=== PATIENT | female | born 1990 | race Caucasian/White ===

== ENCOUNTER 2017-01-08 23:37 | Emergency (ER) | payer OTHER ==
[2017-01-09 00:25] VITALS: BP 130/84; PULSE 87; BMI 24.7
--- NOTE | 2017-01-09 00:32 | PDOC ---
History of Present Illness - General History Source: Patient Exam Limitations: No Limitations - History of Present Illness Initial Comments: 01/09/17 00:44 The patient is a 26 year old male, with a significant past medical history of Asthma who presents to the emergency department with pain and swelling to L wrist today. Patient reports play fighting with her boyfriend and immediately experienced L wrist pain. Patient reports decreased range of motion and presents to the ED for further evaluation. <Swati Vasquez - Last Filed: 01/09/17 00:44> - General History Source: Patient <Andrei Welsh - Last Filed: 01/09/17 01:19> - General Chief Complaint: Injury Stated Complaint: INJURY Time Seen by Provider: 01/09/17 00:32 Past History <Swati Vasquez - Last Filed: 01/09/17 00:44> - Past Medical History Asthma: Yes - Surgical History Abdominal Surgery: Yes - Suicide/Smoking/Psychosocial Hx Smoking Status: No Smoking History: Never smoked Have you smoked in the past 12 months: No Number of Cigarettes Smoked Daily: 0 Information on smoking cessation initiated: No Hx Alcohol Use: No Drug/Substance Use Hx: No <HamiltonAndrei wick - Last Filed: 01/09/17 01:19> - Past Medical History Allergies/Adverse Reactions: Allergies Allergy/AdvReac Type Severity Reaction Status Date / Time sulfamethoxazole Allergy Mild Hives Verified 01/09/17 00:22 [From Bactrim] trimethoprim [From Bactrim] Allergy Mild Hives Verified 01/09/17 00:22 Home Medications: Ambulatory Orders NK [No Known Home Medication] 01/09/17 Review of Systems - Review of Systems Able to Perform ROS?: Yes Comments:: 01/09/17 00:44 CONSTITUTIONAL: Absent: fever, no chills, no fatigue EYES: Absent: visual changes ENT: Absent: ear pain, no sore throat CARDIOVASCULAR: Absent: chest pain, no palpitations RESPIRATORY: Absent: cough, no SOB GI: Absent: abdominal pain, no nausea, no vomiting, no constipation, no diarrhea GENITOURINARY: Absent: dysuria, no frequency, no hematuria MUSCULOSKELETAL: + L wrist pain. Absent: back pain, no arthralgia, no myalgia SKIN: Absent: rash <Swati Vasquez - Last Filed: 01/09/17 00:44> *Physical Exam - Vital Signs Last Vital Signs Temp Pulse Resp BP Pulse Ox 87 14 130/84 100 01/09/17 00:23 01/09/17 00:23 01/09/17 00:23 01/09/17 00:23 - Physical Exam Comments: 01/09/17 00:45 GENERAL: Well-appearing, well-nourished. No apparent distress. HEENT: Normocephalic, atraumatic. PERRL, EOM intact. CARDIOVASCULAR: Normal S1, S2. Regular rate and rhythm. PULMONARY: Clear to auscultation bilaterally. ABDOMEN: Soft, non-distended, non-tender. EXTREMITIES: +Swelling through L thenar. Decreased ROM due to swelling and pain to L wrist. Normal ROM in all three extremities. No gross deformities. SKIN: Warm, dry. No rash NEUROLOGICAL: No focal neurological deficits. <Swati Vasquez - Last Filed: 01/09/17 00:44> - Vital Signs Last Vital Signs Temp Pulse Resp BP Pulse Ox 87 14 130/84 100 01/09/17 00:23 01/09/17 00:23 01/09/17 00:23 01/09/17 00:23 <Andrei Welsh - Last Filed: 01/09/17 01:19> Medical Decision Making - Medical Decision Making 01/09/17 01:18 Dr. Welsh: The scribe's documentation has been prepared under my direction and personally reviewed by me in its entirery. I confirm that the note above accurately reflects all work, treatment, procedures, and medical decision making performed by me. <Andrei eWlsh - Last Filed: 01/09/17 01:19> *DC/Admit/Observation/Transfer - Attestations Scribe Attestion: 01/09/17 00:45 Documentation prepared by Swati Vasquez, acting as medical imaging technologist for Andrei Welsh DO. <Swati Vasquez - Last Filed: 01/09/17 00:44> - Discharge Dispostion Admit: No <Andrei Welsh - Last Filed: 01/09/17 01:19> Diagnosis at time of Disposition: Sprain of wrist - Discharge Dispostion Disposition: HOME Condition at time of disposition: Stable - Referrals Referrals: Ike Molina MD [Staff Physician] - - Patient Instructions Printed Discharge Instructions: DI for Wrist Sprain Additional Instructions: rest hand and wrist as much as possible. Apply ice for the next blood. Take Motrin for pain and swelling - Post Discharge Activity Forms/Work/School Notes: Back to Work
[2017-01-09] MEDS ORDERED: IBUPROFEN 600 MG TABLET (FP) PO STA (00:33)
[2017-01-09] MEDS ORDERED: IBUPROFEN 600 MG TABLET (FP) PO ONE ×2 (00:44→01:09)
== END 2017-01-09 01:31 | disposition home or self-care (01) ==
LOC: JER 23:37
DX: S63.502A Unspecified sprain of left wrist, initial encounter (principal); X58.XXXA Exposure to other specified factors, initial encounter; Y93.89 Activity, other specified; Y92.9 Unspecified place or not applicable; J45.909 Unspecified asthma, uncomplicated
CPT/HCPCS: 73110-TC-LT; 73130-TC-LT; 99282-25

== ENCOUNTER 2020-10-12 06:15 | Inpatient (IN) | payer OTHER ==
[2020-10-12 07:00] VITALS: BMI 33.6
[2020-10-12] MEDS ORDERED: morphine SULFATE/PF 0.5 MG/ML (2cc Syringe - QUVA) EP ONE (07:56)
[2020-10-12] MEDS ORDERED: ONDANSETRON 4 MG/2 ML VIAL IVPUSH PRN (07:56)
[2020-10-12] MEDS ORDERED: CITRIC ACID/SODIUM CITRATE 30 ML UNIT-DOSE CUP PO ONE (08:10)
[2020-10-12] MEDS ORDERED: ELECTROLYTE-148 SOLN 500 ML IV ONE (08:10)
[2020-10-12] MEDS ORDERED: ceFAZolin SODIUM 1 GM VIAL ONE (08:13)
[2020-10-12] MEDS ORDERED: OXYTOCIN 10 UNITS/ML VIAL ONE ×2 (08:26→09:02)
[2020-10-12] MEDS ORDERED: ePHEDrine SULFATE 50 MG/1 ML AMPULE ONE (08:28)
[2020-10-12] MEDS ORDERED: ONDANSETRON 4 MG/2 ML VIAL ONE (08:35)
[2020-10-12] MEDS ORDERED: BENZOCAINE 20% 57 GM BOTTLE TP PRN (09:24)
[2020-10-12] MEDS ORDERED: WITCH HAZEL 50% (TUCKS) 40 PAD/JAR PAD TP PRN (09:24)
[2020-10-12] MEDS ORDERED: KETOROLAC TROMETHAMINE 30 MG/1 ML VIAL ONE (09:24)
[2020-10-12] MEDS ORDERED: METHYLERGONOVINE MALEATE 0.2 MG/1 ML AMP IM PRN (09:24)
[2020-10-12] MEDS ORDERED: oxyCODONE HCL 5 MG TABLET PO PRN ×2 (09:24)
[2020-10-12] MEDS ORDERED: SENNOSIDES/DOCUSATE COMBO (SENNA PLUS) TABLET (UD) PO PRN (09:24)
[2020-10-12] MEDS ORDERED: BENZOCAINE 28 GM HEMORRHOIDAL OINTMENT TP PRN (09:24)
[2020-10-12] MEDS ORDERED: OXYTOCIN 20 UNITS in 0.9% NS 1000 ML INFUS.BAG IV ONE ×2 (10:08→10:58)
[2020-10-12] MEDS ORDERED: OXYTOCIN 20 UNITS in 0.9% NS 20 UNIT/1,000 ML INFUS.BAG IV SCH (11:00)
[2020-10-12] MEDS: PRENATAL VITAMINS W/ FOLIC ACID TABLET (FP) PO SCH (11:56)
[2020-10-12] MEDS: IBUPROFEN 800 MG/8 ML IJ IVPB PRN (17:20)
[2020-10-13] MEDS: IBUPROFEN 800 MG/8 ML IJ IVPB PRN (01:28)
[2020-10-13 08:38] LABS: BASO % 0.3 % (0-2.0); EOS % 1.3 % (0-4.5); HEMATOCRIT 24.1 % (32.4-45.2); HEMOGLOBIN 8.1 GM/dL (10.7-15.3); LYMPH % 13.9 % (8-40); MCH 30.2 pg (25.7-33.7); MCHC 33.5 g/dl (32.0-36.0); MEAN CELL VOLUME 90.1 fl (80-96); MEAN PLT VOLUME 8.4 fl (7.5-11.1); MONO % 9.8 % (3.8-10.2); NEUT % 74.7 % (42.8-82.8); PLATELET COUNT 182 10^3/uL (134-434); RBC 2.68 M/mm3 (3.60-5.2); RDW 14.4 % (11.6-15.6); WHITE BLOOD COUNT 9.4 K/mm3 (4.0-10.0)
[2020-10-13] MEDS: IBUPROFEN 600 MG TABLET (FP) PO PRN ×2 (08:56→17:21)
[2020-10-13] MEDS: SIMETHICONE 80 MG TAB.CHEW (FP) PO PRN (08:56)
[2020-10-13] MEDS: PRENATAL VITAMINS W/ FOLIC ACID TABLET (FP) PO SCH (09:01)
[2020-10-13] MEDS ORDERED: BISACODYL 10 MG SUPP.RECT RC PRN (09:24)
[2020-10-14] MEDS: SIMETHICONE 80 MG TAB.CHEW (FP) PO PRN ×2 (01:17→09:03)
[2020-10-14] MEDS: ACETAMINOPHEN 325 MG TABLET (FP) PO PRN (01:17)
[2020-10-14] MEDS: IBUPROFEN 600 MG TABLET (FP) PO PRN ×3 (01:18→17:28)
[2020-10-14] MEDS: PRENATAL VITAMINS W/ FOLIC ACID TABLET (FP) PO SCH (10:24)
[2020-10-14 21:53] VITALS: PULSE 98
[2020-10-15 09:39] LABS: BASO % 0.2 % (0-2.0); EOS % 2.2 % (0-4.5); HEMATOCRIT 26.7 % (32.4-45.2); HEMOGLOBIN 9.2 GM/dL (10.7-15.3); LYMPH % 14.2 % (8-40); MCH 31.4 pg (25.7-33.7); MCHC 34.3 g/dl (32.0-36.0); MEAN CELL VOLUME 91.6 fl (80-96); MEAN PLT VOLUME 8.4 fl (7.5-11.1); MONO % 8.3 % (3.8-10.2); NEUT % 75.1 % (42.8-82.8); PLATELET COUNT 253 10^3/uL (134-434); RBC 2.91 M/mm3 (3.60-5.2); RDW 14.1 % (11.6-15.6)
[2020-10-15] MEDS: PRENATAL VITAMINS W/ FOLIC ACID TABLET (FP) PO SCH (09:42)
[2020-10-15] MEDS: ACETAMINOPHEN 325 MG TABLET (FP) PO PRN (09:42)
[2020-10-15] MEDS: IBUPROFEN 600 MG TABLET (FP) PO PRN (09:43)
[2020-10-15 11:43] VITALS: BP 125/72; TEMP 98
== END 2020-10-15 16:00 | disposition home or self-care (01) | DRG 540 ==
LOC: JLDR 06:15 → J3W 10:35
PROVIDERS: ADMIT Obstetrics & Gynecology; ATTEND Obstetrics & Gynecology
PROC: 10D00Z1 Extraction of Products of Conception, Low, Open Approach (ICD-10-PCS; principal; 2020-10-12)
DX: O34.211 Maternal care for low transverse scar from previous cesarean delivery (principal); N85.8 Other specified noninflammatory disorders of uterus; O99.214 Obesity complicating childbirth; O10.92 Unspecified pre-existing hypertension complicating childbirth; O41.1230 Chorioamnionitis, third trimester, not applicable or unspecified; Z3A.39 39 weeks gestation of pregnancy; Z37.0 Single live birth
CPT/HCPCS: 36415; 80053; 85025; 85610; 85730; 86780; 86850; 86900; 86901; 87389; 88307-TC; C9803; U0003; U0005